=== PATIENT | female | born 1975 | race Caucasian/White ===

== ENCOUNTER 2019-01-15 20:54 | Emergency (ER) | payer SELFPAY ==
[~2019-01-15] VITALS: Ht 154.9 cm; Wt 78.5 kg
[2019-01-15 21:30] VITALS: Ht 154.9 cm; Wt 78.5 kg
[2019-01-16 01:09] VITALS: BP 128/82
== END 2019-01-16 01:09 | disposition home or self-care (01) ==
LOC: ED 20:54
DX: L73.9 Follicular disorder, unspecified (principal); E11.9 Type 2 diabetes mellitus without complications

== ENCOUNTER 2019-11-28 03:25 | Emergency (ER) | payer OTHER ==
[~2019-11-28] VITALS: Ht 152.4 cm; Wt 72.6 kg
[2019-11-28 03:34] VITALS: Ht 152.4 cm; Wt 72.6 kg
[2019-11-28 04:38] VITALS: BP 139/69
== END 2019-11-28 04:39 | disposition home or self-care (01) ==
LOC: ED 03:25
DX: S13.4XXA Sprain of ligaments of cervical spine, initial encounter (principal); E11.9 Type 2 diabetes mellitus without complications; V49.9XXA Car occupant (driver) (passenger) injured in unspecified traffic accident, initial encounter; Y93.89 Activity, other specified; Y92.89 Other specified places as the place of occurrence of the external cause; Y99.8 Other external cause status
CPT/HCPCS: 82962; J1885

== ENCOUNTER 2020-04-10 17:07 | Emergency (ER) | payer OTHER ==
[~2020-04-10] VITALS: Ht 154.9 cm; Wt 74.4 kg
[2020-04-10 17:15] VITALS: Ht 154.9 cm; Wt 74.4 kg
[2020-04-10 19:15] VITALS: BP 125/71
== END 2020-04-10 19:15 | disposition home or self-care (01) ==
LOC: ED 17:07
DX: S20.212A Contusion of left front wall of thorax, initial encounter (principal); E11.9 Type 2 diabetes mellitus without complications; W18.30XA Fall on same level, unspecified, initial encounter; Y93.89 Activity, other specified; Y92.89 Other specified places as the place of occurrence of the external cause; Y99.8 Other external cause status
CPT/HCPCS: J1885